=== PATIENT | male | born 1990 | race Caucasian/White ===

== ENCOUNTER 2021-05-15 11:14 | Emergency (ER) | payer SELFPAY ==
[~2021-05-15] VITALS: Ht 177.8 cm; Wt 117.9 kg
[~2021-05-15 11:14] MED LIST: HYDACE5 PO; IBUP400 PO; IBUP600 PO; OXYACE5T PO; PROM25 PO; RXOXYACE PO; TAMS.4ER PO; Zofran4 MG PO
[2021-05-15 12:35] LABS: Influenza A Negative (NEGATIVE); Influenza B Negative (NEGATIVE)
[2021-05-15 14:11] LABS: SARS-Cov-2 (COVID-19) PCR, MMC POSITIVE (NEGATIVE)
[2021-05-15] MEDS ORDERED: PROM25 PO (15:33)
[2021-05-15] MEDS ORDERED: DEXA4 PO (15:33)
== END 2021-05-15 15:59 | disposition home or self-care (01) ==
LOC: ER 11:14
PROVIDERS: Physician Assistant
DX: U07.1 COVID-19 (principal); J12.82 Pneumonia due to coronavirus disease 2019; J96.91 Respiratory failure, unspecified with hypoxia; Z91.018 Allergy to other foods; Z87.891 Personal history of nicotine dependence
CPT/HCPCS: 71045; 87804; 99284; A9270; J1100; U0004